=== PATIENT | male | born 1965 | race Caucasian/White ===

== ENCOUNTER 2019-01-21 07:35 | Emergency (ER) | payer BC, MEDICARE, OTHER ==
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
== END 2019-01-21 10:30 ==
LOC: JP.ED 07:35
DX: S12.100A Unspecified displaced fracture of second cervical vertebra, initial encounter for closed fracture (principal); F10.129 Alcohol abuse with intoxication, unspecified; E03.9 Hypothyroidism, unspecified; Z79.899 Other long term (current) drug therapy; V89.2XXA Person injured in unspecified motor-vehicle accident, traffic, initial encounter
CPT/HCPCS: 36415; 70450; 71045; 72125; 73000; 80305; 99284; G0480

== ENCOUNTER 2022-03-08 17:10 | Emergency (ER) | payer MEDICARE, BC ==
[2022-03-08] MEDS ORDERED: HYDROmorphone 1 MG/ML Syringe IM ONE (17:45)
[2022-03-08] MEDS ORDERED: Sodium Chloride 0.9% 10 ML Syringe FLUSH PRN (18:38)
[2022-03-08] MEDS ORDERED: Propofol 200 MG/20 ML SDV IVPUSH ONE ×2 (18:38→18:59)
[2022-03-08] MEDS ORDERED: HYDROmorphone 0.5 MG/0.5 ML Syringe IVPUSH ONE (18:44)
[2022-03-08] MEDS ORDERED: Sodium Chloride 0.9% 1,000 ML IV SCH (18:45)
== END 2022-03-08 19:56 | disposition home or self-care (01) ==
LOC: JP.ED 17:10
DX: S52.502A Unspecified fracture of the lower end of left radius, initial encounter for closed fracture (principal); E03.9 Hypothyroidism, unspecified; Z79.899 Other long term (current) drug therapy; W11.XXXA Fall on and from ladder, initial encounter
CPT/HCPCS: 24655; 73110; 76000; 96372; 96374; 99283; J1170; J2704

== ENCOUNTER 2022-03-16 08:37 | Day surgery (SDC) | payer MEDICARE, BC ==
[~2022-03-16 08:37] MED LIST: Nozin Nasal Sanitizer NASBOTH ONE
[2022-03-16] MEDS ORDERED: Rocuronium 50 MG/5 ML Vial ONE (09:11)
[2022-03-16] MEDS ORDERED: Glycopyrrolate 0.2 MG/ML 5 ML MDV ONE (09:11)
[2022-03-16] MEDS ORDERED: fentaNYL 250 MCG/5 ML SDV ONE ×2 (09:11→11:44)
[2022-03-16] MEDS ORDERED: Neostigmine Methylsulfate 1 MG/ML 5 ML Syringe ONE (09:11)
[2022-03-16] MEDS ORDERED: Propofol 200 MG/20 ML SDV ONE (09:11)
[2022-03-16] MEDS ORDERED: Dexamethasone 4 MG/ML SDV ONE (09:11)
[2022-03-16] MEDS ORDERED: Succinylcholine 200 MG/10 ML MDV ONE (09:11)
[2022-03-16] MEDS ORDERED: Ondansetron 4 MG/2 ML SDV ONE (09:11)
[2022-03-16 09:20] LABS: ESTIMATED GFR 89 mL/min (>60)
[2022-03-16] MEDS ORDERED: Lactated Ringers 1,000 ML IV SCH (09:30)
[2022-03-16] MEDS ORDERED: ceFAZolin 1 GM in Premix Bag 1 BAG IV ONE (09:45)
[2022-03-16] MEDS ORDERED: Bupivacaine 0.5% 30 ML SDV ONE (10:20)
[2022-03-16] MEDS ORDERED: Labetalol 20 MG/4 ML Syringe ONE (11:54)
[2022-03-16] MEDS ORDERED: Morphine 2 MG/ML SYRINGE IVPUSH ONE (13:07)
[2022-03-16] MEDS ORDERED: Acetaminophen/oxyCODONE 325-5 MG Tab PO ONE (13:46)
== END 2022-03-16 15:50 | disposition home or self-care (01) ==
LOC: JP.SDS 08:37
PROVIDERS: ATTEND Specialist
DX: S52.502A Unspecified fracture of the lower end of left radius, initial encounter for closed fracture (principal); F32.A Depression, unspecified; E03.9 Hypothyroidism, unspecified; Z79.890 Hormone replacement therapy; Z79.899 Other long term (current) drug therapy; Z98.890 Other specified postprocedural states; Z91.048 Other nonmedicinal substance allergy status; Z91.040 Latex allergy status; Z91.011 Allergy to milk products; W19.XXXA Unspecified fall, initial encounter
CPT/HCPCS: 25608; 36415; 76000; 80053; 85025; A9270; C1713; J0330; J0690; J1100; J2270; J2405; J2704; J2710; J3010; J3490; J7120